=== PATIENT | male | born 1995 | race Caucasian/White ===

== ENCOUNTER → 2023-11-14 08:14 | Outpatient (REF) | payer SELFPAY ==
[2023-11-15 07:44] LABS: Draw Blood Only DBO
== END ==
LOC: REG 08:14
PROVIDERS: ATTENDING PHYSICIAN Chiropractor
DX: G47.00 Insomnia, unspecified (principal); R14.0 Abdominal distension (gaseous); K59.00 Constipation, unspecified
CPT/HCPCS: 36415